=== PATIENT | male | born 1965 | race Caucasian/White ===

== ENCOUNTER 2020-09-13 10:48 | Emergency (ER) | payer MEDICAID, SELFPAY ==
[2020-09-13 10:56] VITALS: BP 149/100; PULSE 72; TEMP 36.1; O2SAT 97
--- NOTE | 2020-09-13 11:00 | DI.CT_ITS ---
EXAM: CT RENAL COLIC WO CLINICAL HISTORY: L flank pain. TECHNIQUE: Imaging Protocol: Axial computed tomography images with coronal and sagittal reformatted images were created and reviewed. COMPARISON: No exams were available for comparison FINDINGS: ABDOMEN: Lung Bases: Normal where visualized. Liver: Normal density. No measurable mass. Gallbladder and biliary tract: Cholelithiasis. No biliary ductal dilatation. Pancreas: Normal density, no abnormal calcifications or inflammatory process. Spleen: Normal. Kidneys: Normal size, contour and axis.There are 4 nonobstructing stones seen in the right kidney. T he largest measures 6.5 mm. No hydronephrosis is seen on the right. There is a 0.8 cm proximal left ureteral calculus causing moderate hydronephrosis. The calcification lies at the level of the super ior endplate of L4. There is a nonobstructing 2 mm calculus in the midpole of the left kidney. No m asses seen. Adrenal glands: No mass is seen. Lymph nodes: Within normal limits. Abdominal Aorta: Abdominal portion non-dilated. Atherosclerosis. PELVIS: Bladder:Incompletely distended but grossly unremarkable. Bowel: No obstruction or bowel wall thickening. No evidence of appendicitis. Peritoneal cavity: No ascites, collection or mesenteric inflammatory response. No free air. Reproductive organs: Within normal limits. Bones: Within normal limits. Soft Tissues: Degenerative changes. IMPRESSION: 1. 0.8 cm proximal left ureteral calculus causing moderate hydronephrosis. 2. Bilateral nephrolithiasis. 3. Findings were discussed with the emergency department on the date of the examination. RADIATION DOSE DELIVERED: 1,310.66mGy.cm Total DLP DATA REPOSITORY: All CT scans at this facility are submitted to the National Radiology Data Registry (NRDR) Dose Index Registry (DIR) with the [employer] (ACR). RADIATION OPTIMIZATION: All CT scans at this facility use at least one of these dose optimization te chniques: automated exposure control; mA and/or kV adjustment per patient size (includes targeted exa ms where dose is matched to clinical indication); or iterative reconstruction.
[2020-09-13 11:01] LABS: Bilirubin Negative (Negative); Blood Trace-intact (Negative); Clarity Clear (Clear); Glucose Negative (Negative); Ketones Negative (Negative); Leukocyte Esterase Negative (Negative); Nitrite Negative (Negative); Specific Gravity 1.025 (1.005-1.025); Urobilinogen 0.2 EU/dL (Up TO 0.2); pH 5.5 (5-8)
--- NOTE | 2020-09-13 11:10 | W.ED.GENAD ---
Discharge Plan Disposition Patient Disposition: HOME Condition: Improving Discharge Details Clinical Impression: Calculus of left ureter Primary Care Provider: Rob Cross ED Provider: Allan Martinez Home Meds and New Rx's Prescriptions: New ondansetron HCl [Zofran] 4 mg tablet 4 mg PO QID PRN (Reason: nausea and vomiting) Qty: 10 RF: 0 Continued bupropion HCl 75 mg tablet 75 mg PO DAILY RF: 0 aspirin 81 mg tablet,delayed release (DR/EC) 81 mg PO DAILY RF: 0 pantoprazole 40 mg tablet,delayed release (DR/EC) 40 mg PO DAILY RF: 0 clopidogrel 75 mg tablet 75 mg PO DAILY RF: 0 polyethylene glycol 3350 [Miralax] 17 gram/dose powder 17 g PO DAILY RF: 0 nitroglycerin 0.4 mg tablet, sublingual 0.4 mg sublingual ONCE RF: 0 Praluent Pen 75 mg/mL pen injector 75 mg subcut Q2W RF: 0 rosuvastatin 10 mg tablet 10 mg PO DAILY RF: 0 levocetirizine [Xyzal] 5 mg tablet 5 mg PO QPM PRNRF: 0 docusate sodium [Colace] 100 mg capsule 100 mg PO PRN RF: 0 Discharge Instructions Additional Instructions: Please follow-up in urology clinic this afternoon. Tylenol as needed for pain. Please use the provided Zofran as needed for nausea. Medical Decision Making 55-year-old male presents from outpatient general surgery clinic. He has had weeks of intermittent episodes of left flank pain. States he was seen at a hospital in [place] 3 weeks ago and diagnosed with a urinary tract infection for which she was treated with antibiotics. Notes stuttering urine stream. No change to urine color. Question chills at home but no documented fever. States that with the pain is intermittently had some nausea and vomiting. He does have known biliary colic for which she is seeing a surgical clinic. He arrives slightly hypertensive, afebrile, with no significant tenderness on exam. Concern for UTI, pyelonephritis, as well as renal colic. Patient IV access established, given small amount of fluids, acetaminophen, and referred for CT imaging. CT reveals a proximal left ureteral calculus. See formal report. White blood cell count is 9, hematocrit 48, platelets 300. Chemistries for creatinine 1.4. No comparison is available. Urinalysis with blood but no evidence of infection. Patient's pain improved with analgesia. Will place for labs. Discussed with urology who is able to see him in clinic this afternoon. Patient stable, impoved. HPI General Mode of arrival: ambulatory. Date/Time Provider Initiated Documentation: 09/13/20 10:54. Limitations to Documentation: no limitations. Information obtained by: patient. History of Present Illness 55 year old M presents to the emergency department with the chief complaint of Left flank pain intermittently for weeks, described as moderate, Quality is described as dull and constant, and is localized to the back and left. Patient reports no radiation. Patient started experiencing this week(s) and it has been intermittent. No relieving factors improve symptom(s), No exacerbating factors reported . Patient notes nausea/vomiting; denies fever/chills. Patient did receive the following treatments prior to arrival, none Related Data Home Medications Medication Instructions Recorded Confirmed alirocumab 75 mg/mL subcutaneous 75 mg SUBCUT Q2W 09/10/20 09/13/20 pen injector aspirin 81 mg tablet,delayed 81 mg PO DAILY 09/10/20 09/13/20 release bupropion HCl 75 mg tablet 75 mg PO DAILY tab 09/10/20 09/13/20 clopidogrel 75 mg tablet 75 mg PO DAILY 09/10/20 09/13/20 docusate sodium 100 mg capsule 100 mg PO PRN cap 09/10/20 09/13/20 levocetirizine 5 mg tablet 5 mg PO QPM PRN 09/10/20 09/13/20 nitroglycerin 0.4 mg sublingual 0.4 mg SUBLINGUAL ONCE 09/10/20 09/13/20 tablet pantoprazole 40 mg tablet,delayed 40 mg PO DAILY 09/10/20 09/13/20 release polyethylene glycol 3350 17 17 g PO DAILY 09/10/20 09/13/20 gram/dose oral powder rosuvastatin 10 mg tablet 10 mg PO DAILY 09/10/20 09/13/20 ondansetron HCl [Zofran] 4 mg PO QID PRN #10 tab 09/13/20 Previous Rx's Medication Instructions Recorded ondansetron HCl [Zofran] 4 mg PO QID PRN #10 tab 09/13/20 Allergies Allergy/AdvReac Type Severity Reaction Status Date / Time clarithromycin [From Biaxin] Allergy Unknown Verified 09/13/20 11:01 niacin Allergy Unknown Verified 09/13/20 11:01 simvastatin AdvReac Intermediate Joint pain Verified 09/13/20 11:01 General Stated Complaint: FlankPain JAQUELINE: 3 Review of Systems Narrative: 6 systems reviewed and otherwise negative. [facility] Medical History Alcoholism Appendicitis Blood glucose elevated CAD (coronary artery disease) Chronic depression Depression GERD (gastroesophageal reflux disease) Hyperlipemia, fat-induced Illiteracy Impaired fasting glucose Migraine Night sweats MICHAEL (obstructive sleep apnea) Plantar fasciitis Polyarthralgia Spinal stenosis Surgical History (Updated 09/13/20 @ 10:52 by Cora Rosario DO) History of appendectomy (~05/2016) S/P correction of deviated nasal septum (~05/2007) Stented coronary artery Social History Smoking/Tobacco Use Status: Never Smoking risk assessment performed?: Yes Alcohol Intake: current Alcohol Intake frequency: a few times a week Alcohol type: beer Drug use: Never Substance use type: does not use Do you feel safe at home: Yes Do you feel safe in your relationship?: Yes Exam Narrative Exam Narrative: GEN: awake, alert, oriented 3. Pleasant, well groomed, interactive. HEAD: Normocephalic, atraumatic ENT: Mucous membranes moist, oropharynx unremarkable, External ear exam unremarkable EYES: PERRL, EOMI NECK: Full ROM, no CARL, no menigismus CHEST/RESP: Nontender, clear to auscultation bilateral, no wheeze/rhonchi/rales CARDIOVASCULAR: RRR, no murmur, rub rick. 2+ Rad pulse bilateral ABDOMEN: Soft, minimal/discrete left lower quadrant tenderness without rebound, no mass. +Bowel sounds EXT: Full ROM, no edema, no rash Neuro: Grossly normal neurologic exam, conversant, interactive. Psych: Speech fluent, thoughts congruent, affect normal Course Vital Signs Vital signs: Vital Signs Temperature 36.1 C L 09/13/20 10:56 Pulse 72 09/13/20 10:56 Blood Pressure 149/100 H 09/13/20 10:56 Pulse Oximetry 97 09/13/20 10:56 Temperature 36.1 C L 09/13/20 10:56 Temperature Source Temporal Artery Scan 09/13/20 10:56 Pulse 72 09/13/20 10:56 Respiratory Effort Non-Labored 09/13/20 11:00 Blood Pressure 149/100 H 09/13/20 10:56 Blood Pressure Position Sitting 09/13/20 10:56 Pulse Oximetry 97 09/13/20 10:56 Oxygen Delivery Method Room Air 09/13/20 10:56 Oxygen Flow Rate 0 09/13/20 10:56 Pain Level 3 09/13/20 10:56
[2020-09-13 11:12] LABS: Bacteria Rare HPF (Negative); C & S Indicated? No; Casts Negative LPF (Negative); Crystals Negative HPF (Negative); Epithelial Cells Rare HPF (Negative); Mucus Trace (Negative); RBC 0-2 HPF (0-2)
[2020-09-13 11:24] LABS: Abs Immature Grans 0.02 10^3/uL (0.0-0.06); Absolute Basophil Count 0.05 10^3/uL (0.0-0.2); Absolute Eosinophil Count 0.19 10^3/uL (0.0-0.7); Absolute Lymphocyte Count 2.19 10^3/uL (1.2-3.4); Absolute Monocyte Count 0.87 10^3/uL (0.1-0.8); Absolute Neutrophil Count 5.84 10^3/uL (1.2-6.7); Basophils % 0.5; Eosinophils % 2.1; HCT 48.6 % (40.0-50.0); HGB 16.3 g/dL (13.5-17.5); Immature Grans % 0.2; Lymphocytes % 23.9; MCH 32.5 pg (27.0-33.0); MCHC 33.5 % (32.0-36.0); Monocytes % 9.5; Neutrophils % 63.8; Nucleated RBC 0 %; Platelet Count 300 10^3/uL (130-400); RBC 5.01 10^6/uL (4.36-5.78); RDW-SD 43.1 fL; WBC 9.16 10^3/uL (4.4-10.8)
[2020-09-13 11:33] LABS: ALT 38 U/L (16-63); AST 26 U/L (15-37); Albumin 3.9 g/dL (3.4-5.0); Alkaline Phosphatase 109 U/L (46-116); Anion Gap 10.1 mmol/L (3-11); BUN 14 mg/dL (7-18); Bilirubin, Total 0.8 mg/dL (0.2-1.0); CO2 24.9 mmol/L (21.0-32.0); CREATININE 1.4 mg/dL (0.70-1.30); Calcium 9.1 mg/dL (8.5-10.1); Chloride 101 mmol/L (98-107); Estimated GFR 52.81 (mL/min/1.73m2); Glucose 107 mg/dL (74-106); Potassium 4.3 mmol/L (3.5-5.1); Sodium 136 mmol/L (136-145); Total Protein 8.3 g/dL (6.4-8.2)
[2020-09-13] MEDS: ACETAMINOPHEN 1,000 MG/100 ML BTL 400 MG IVPB (11:35)
[2020-09-13] MEDS: Normal Saline 1,000 ML 150 ML IV (11:36)
[2020-09-13] MEDS: Tamsulosin 0.4 MG CAPCR PO (11:45)
[2020-09-13 11:52] LABS: Hemoglobin A1C 5.9 % (<5.7)
[2020-09-13 11:54] LABS: GGT 34 U/L (15-85); TSH 1.17 uIU/mL (0.36-3.74)
[2020-09-13] MEDS: Ondansetron 4 MG/2 ML VIAL IVP (12:07)
[2020-09-13 12:32] VITALS: BP 143/93; PULSE 66; RESP 18; O2SAT 98
[2020-09-13 13:24] VITALS: BP 140/90; PULSE 56; RESP 20; TEMP 36.3; O2SAT 98
[2020-09-13] MEDS: Ondansetron O.D.T. 4 MG TABEF, 3 TABS/BTL PO (13:42)
== END 2020-09-13 13:37 | disposition home or self-care (01) ==
PROVIDERS: Surgery; Emergency Provider Emergency Medicine; PCP Family Medicine
DX: N13.2 Hydronephrosis with renal and ureteral calculous obstruction (principal)
CPT/HCPCS: 36415; 80053; 96361; 96374; 96375; 99284; 74176; 81003; 81015; 82977; 83036; 84443; 85025; 87086; J0131; J2405

== ENCOUNTER 2020-09-21 01:45 | Outpatient (CLI) | payer MEDICAID, SELFPAY ==
[2020-09-21 12:31] LABS: Calculated LDL 96 mg/dL (<100); Cholesterol 162 mg/dL (<200); HDL Cholesterol 41 mg/dL (40-60); Triglyceride 127 mg/dL (<150)
== END 2020-09-21 01:46 | disposition home or self-care (01) ==
LOC: LBO 01:51
PROVIDERS: PCP Family Medicine; Visit Provider Internal Medicine Cardiovascular Disease
DX: E78.5 Hyperlipidemia, unspecified (principal); I25.10 Atherosclerotic heart disease of native coronary artery without angina pectoris
CPT/HCPCS: 36415; 80061

== ENCOUNTER 2020-09-28 10:35 | Emergency (ER) | payer MEDICAID, SELFPAY ==
[2020-09-28 10:40] VITALS: BP 163/90; PULSE 81; RESP 12; TEMP 36.7; O2SAT 95
--- NOTE | 2020-09-28 10:43 | ED.GENADUL_ITS ---
Discharge Plan Disposition Patient Disposition: HOME Condition: Stable Discharge Details Clinical Impression: Constipation Primary Care Provider: Rob Cross ED Provider: Betty Leigh Home Meds and New Rx's Prescriptions: Continued bupropion HCl 75 mg tablet 75 mg PO BID RF: 0 aspirin 81 mg tablet,delayed release (DR/EC) 81 mg PO DAILY RF: 0 pantoprazole 40 mg tablet,delayed release (DR/EC) 40 mg PO DAILY RF: 0 clopidogrel 75 mg tablet 75 mg PO DAILY RF: 0 nitroglycerin 0.4 mg tablet, sublingual 0.4 mg sublingual ONCE RF: 0 Praluent Pen 75 mg/mL pen injector 75 mg subcut Q2W RF: 0 rosuvastatin 10 mg tablet 10 mg PO DAILY RF: 0 docusate sodium [Colace] 100 mg capsule 100 mg PO PRN RF: 0 ondansetron HCl [Zofran] 4 mg tablet 4 mg PO QID PRN (Reason: nausea and vomiting) Qty: 10 RF: 0 hydrocodone-acetaminophen 5-325 mg Tablet 1 tab PO QID PRN (Reason: Pain) RF: 0 tamsulosin 0.4 mg Capsule 0.4 mg PO HS RF: 0 Discharge Instructions Instructions: Constipation (ED) Additional Instructions: Please encourage water intake. You may continue with stool softeners but wait until tomorrow to take any further. You are given a dose of magnesium citrate while here. Please follow-up with your primary care next week for reevaluation. If you develop fever/chills, increased pain, vomiting or other new/worsening symptoms please seek care urgently once again. Referrals: Rob Cross [Primary Care Provider] - Discharge Data Discharge Date/Time-TO BE ENTERED AT DEPARTURE: 09/28/20 16:05 Medical Decision Making Patient is a pleasant 55-year-old gentleman presents today with chief complaint of constipation and abdominal discomfort. He states that he has had difficulty with regular bowel movements for several years. However, over the past 2 months this is gotten significantly worse. He reports that he has not had a bowel movement on the past 7 days. He has never passed flatus. States that his appetite has been normal. Despite a normal intake, reports that he has had a 20 pound weight loss over the past few months. He denies any fevers or chills. States that he had his last colonoscopy over 3 years ago. She does have a significant family history including a brother who in his 50s of colon cancer. He reports that when he was having bowel movements, last week, they are very small and black. He reported that they were quite hard. He states he has been using stool softeners at home with no improvement of his symptoms. Patient was seen at urgent care today who felt that the patient would require imaging, particularly given his family history, and recommended that she come in for evaluation in the emergency department. Patient denies any nausea vomiting. No change in urinary habits. Clinical history includes ureteral calculus, has a planned upcoming procedure for calculus on the left side. He denies any dysuria or change in his urination. Patient also has history of chronic GERD, high cholesterol, constipation, TIA, cardiac stent. Patient is on Plavix and aspirin. He denies any chest pain or shortness of breath. On exam, patient appears nontoxic. His lungs are clear, normal cardiac exam. Abdominal exam is fairly benign. He does have some firm areas palpated which is most likely consistent with his constipation. No focal tenderness over these areas. Abdomen is distended but not tympanic. No CVA tenderness at this time. Rectal exam is without significant abnormality. Patient does report a history of hemorrhoids but none are noted on exam today. No impacted stool is able to be palpated. Unable to obtain any stool for Hemoccult testing. I am concerned, the patient, for potential colon cancer and mass-effect related to his constipation particular given his family history. Plan for CT imaging. We will also obtain baseline labs. Discussed this plan with the patient is in agreement. Also considered obstruction with patient complication passing flatus well and abdomen is nontender at this time. Also consider constipation. Patient is not on any opiates but was treated recently for kidney stone. This may be associated with worsening his chronic constipation. Not see any evidence to suggest an acute surgical abdomen time. Labs reviewed. No leukocytosis. Stable H&H. CMP without abnormality. FINDINGS: ABDOMEN: Lung Bases: Normal where visualized. Liver: Moderate fatty infiltration.. No measurable mass. Gallbladder and biliary tract: Cholelithiasis. No biliary dilation. Pancreas: Normal density, no abnormal calcifications or inflammatory process. Spleen: Normal. Kidneys: Normal size, contour and axis. Multiple small nonobstructing stones in the right kidney. No change in moderate left hydronephrosis. The previously noted 8 millimeter calcification remains present in the left proximal ureter. There is a delayed left nephrogram. There is no abnormal perinephric collection. Incidental small cyst at the lower pole of the left kidney. Adrenal glands: No masses seen. Abdominal Aorta: Abdominal portion non-dilated. Atherosclerotic changes. PELVIS: Bladder: Symmetric distention, no gross wall thickening. Bowel: No obstruction or bowel wall thickening. Peritoneal cavity: No ascites, collection or mesenteric inflammatory response. Bones: Degenerative disc changes and facet degenerative changes, greatest at L5- S1. Reproductive organs: Prostate mildly enlarged peer Lymph nodes: Unremarkable. Impression: No change in moderate left hydronephrosis secondary to an 8 millimeters stone in the upper 3rd of the left ureter. Discussed the findings with the patient. He is relieved that there is no evidence of mass-effect or obstruction. Patient I discussed treatment of his constipation. We will give him an enema while here. Patient did have approximately 400 cc of stool out after the enema. He seems upset that this was not more. Stool was noted, small hard ball and patient feels like he still has significantly more stool that needs to pass. Patient was given magnesium citrate. Patient continues to have small amounts of stool. We did discuss with magnesium citrate could take a few hours to have full effect. We discussed having him continue to wait in the department versus discharged home. He would prefer discharge home at this time. Return precautions were discussed. Encourage close follow-up with primary care. We discussed that he needs to write further laxatives if needed tomorrow. All his questions and concerns were addressed and he is in agreement with this plan. [facility] General Mode of arrival: ambulatory . Date/Time Provider Initiated Documentation: 09/28/20 10:35 . Limitations to Documentation: no limitations . Information obtained by: patient and RN notes reviewed . History of Present Illness 55 year old M presents to the emergency department with the chief complaint of distended abdomen, no BM , described as moderate, with intensity rated at 4. Quality is described as aching, and is localized to the abdomen. Patient reports no radiation. Patient started experiencing this month(s) and it has been intermittent (intermittent over months, constant for the past 7 days). No relieving factors improve symptom(s), Eating worsens symptoms . Patient notes diaphoresis (at night) and nausea/vomiting (feels nauseated after eating, appetite normal); denies chest pain, fever/chills, loss of appetite and shortness of breath. Patient did receive the following treatments prior to arrival, other (stool softeners and laxatives ) Related Data Home Medications Medication Instructions Recorded Confirmed alirocumab 75 mg/mL subcutaneous 75 mg SUBCUT Q2W 09/10/20 09/28/20 pen injector aspirin 81 mg tablet,delayed 81 mg PO DAILY 09/10/20 09/28/20 release bupropion HCl 75 mg tablet 75 mg PO BID tab 09/10/20 09/28/20 clopidogrel 75 mg tablet 75 mg PO DAILY 09/10/20 09/28/20 docusate sodium 100 mg capsule 100 mg PO PRN cap 09/10/20 09/28/20 nitroglycerin 0.4 mg sublingual 0.4 mg SUBLINGUAL ONCE 09/10/20 09/28/20 tablet pantoprazole 40 mg tablet,delayed 40 mg PO DAILY 09/10/20 09/28/20 release rosuvastatin 10 mg tablet 10 mg PO DAILY 09/10/20 09/28/20 ondansetron HCl 4 mg tablet 4 mg PO QID PRN #10 tab 09/18/20 09/28/20 hydrocodone-acetaminophen 1 tab PO QID PRN 09/28/20 09/28/20 tamsulosin 0.4 mg PO HS 09/28/20 09/28/20 Previous Rx's Medication Instructions Recorded ondansetron HCl 4 mg tablet 4 mg PO QID PRN #10 tab 09/18/20 Allergies Allergy/AdvReac Type Severity Reaction Status Date / Time clarithromycin [From Biaxin] Allergy Unknown Verified 09/28/20 10:55 niacin Allergy Unknown Verified 09/28/20 10:55 simvastatin AdvReac Intermediate Joint pain Verified 09/28/20 10:55 General Stated Complaint: Abd Prob JAQUELINE: 3 Review of Systems Constitutional Constitutional: Reports as per HPI, Denies chills, Denies fatigue, Denies fever(s) and Denies headache(s) ENT Ears, Nose, Mouth, and Throat: Denies headache(s) Cardiovascular Cardiovascular: Reports as per HPI, Denies chest pain and Denies dyspnea Respiratory Respiratory: Reports as per HPI, Denies cough and Denies dyspnea Gastrointestinal Gastrointestinal: Reports as per HPI Genitourinary Genitourinary: Denies system reviewed and no additional complaints, except as documented (patient denies any change in urinary habits) Musculoskeletal Musculoskeletal: Reports as per HPI and Denies back pain Integumentary/Breasts Skin/Breast: Reports as per HPI and Denies rash Neurologic Neurologic: Reports as per HPI and Denies headache(s) Endocrine Endocrine: Denies fatigue [facility] Medical History Alcoholism Appendicitis Blood glucose elevated CAD (coronary artery disease) Chronic depression Depression GERD (gastroesophageal reflux disease) Hyperlipemia, fat-induced Illiteracy Impaired fasting glucose Migraine Monoclonal gammopathy of unknown significance (MGUS) Night sweats MICHAEL (obstructive sleep apnea) Plantar fasciitis Polyarthralgia Spinal stenosis Surgical History History of appendectomy (~05/2016) S/P correction of deviated nasal septum (~05/2007) Stented coronary artery Social History Smoking/Tobacco Use Status: Never Smoking risk assessment performed?: Yes Alcohol Intake: current Alcohol Intake frequency: a few times a week Alcohol type: beer Drug use: Never Substance use type: does not use Do you feel safe at home: Yes Do you feel safe in your relationship?: Yes Exam Const General: cooperative, healthy appearing, comfortable, no acute distress and well developed Nutritional Appearance: well nourished and overweight Orientation: alert and awake HENDC Head: normal to inspection Mouth: moist mucous membranes Resp Effort & Inspection: normal respiratory effort, able to speak in complete sentences and no respiratory distress Auscultation: clear to auscultation bilaterally, no rales, no rhonchi and no wheezes Cardio Rate: regular rate Rhythm: regular rhythm Heart Sounds: S1 normal and S2 normal GI Inspection: normal to inspection, no abdominal wall ecchymosis, distended and no visible herniation Palpation: soft, no hepatosplenomegaly, not firm, no guarding, no hernias, mass (firm area over the right side of the abdomen), no splenomegaly, nontender and No ascites Percussion: normal to percussion Auscultation: hypoactive bowel sounds Rectal Exam: visual inspection normal, normal sphincter tone, prostate normal, No fecal impaction and other (no stool sample could be obtained for heme testing) Back/Spine/Pelvis Back: no CVA tenderness Skin General skin exam: no rashes or lesions noted Trauma: no lacerations or abrasions Neuro General: patient alert and patient awake Cognition: normal cognition Speech: speech normal Gait: normal gait Psych Appearance: grossly normal and well kempt Mental Status: mental status grossly normal Speech and Movement: speech and movement normal Course Vital Signs Vital signs: Vital Signs Temperature 36.7 C 09/28/20 10:40 Pulse 81 09/28/20 10:40 Respiratory Rate 12 09/28/20 10:40 Blood Pressure 163/90 H 09/28/20 10:40 Pulse Oximetry 95 09/28/20 10:40 Temperature 36.7 C 09/28/20 10:40 Temperature Source Skin 09/28/20 10:40 Pulse 81 09/28/20 10:40 Respiratory Rate 12 09/28/20 10:40 Blood Pressure 163/90 H 09/28/20 10:40 Blood Pressure Position Sitting 09/28/20 10:40 Pulse Oximetry 95 09/28/20 10:40 Oxygen Delivery Method Room Air 09/28/20 10:40 Oxygen Flow Rate 0 09/28/20 10:40 Pain Level 4 09/28/20 10:40
--- NOTE | 2020-09-28 11:00 | DI.CT_ITS ---
EXAM: CT ABDOMEN PELVIS W CLINICAL HISTORY: ?blockage. No BM x 7 days. Fam hx of colon cancer. TECHNIQUE: Imaging Protocol: Axial computed tomography images with coronal and sagittal reformatted images were created and reviewed CONTRAST MATERIAL: Intravenous: Omnipaque 350 Contrast volume:100 cc Oral: / no COMPARISON: CT CT RENAL COLIC WO from 09/13/2020 FINDINGS: ABDOMEN: Lung Bases: Normal where visualized. Liver: Moderate fatty infiltration.. No measurable mass. Gallbladder and biliary tract: Cholelithiasis. No biliary dilation. Pancreas: Normal density, no abnormal calcifications or inflammatory process. Spleen: Normal. Kidneys: Normal size, contour and axis. Multiple small nonobstructing stones in the right kidney. No change in moderate left hydronephrosis. The previously noted 8 millimeter calcification remains pres ent in the left proximal ureter. There is a delayed left nephrogram. There is no abnormal perinephric collection. Incidental small cyst at the lower pole of the left kidney. Adrenal glands: No masses seen. Abdominal Aorta: Abdominal portion non-dilated. Atherosclerotic changes. PELVIS: Bladder: Symmetric distention, no gross wall thickening. Bowel: No obstruction or bowel wall thickening. Peritoneal cavity: No ascites, collection or mesenteric inflammatory response. Bones: Degenerative disc changes and facet degenerative changes, greatest at L5-S1. Reproductive organs: Prostate mildly enlarged peer Lymph nodes: Unremarkable. Impression: No change in moderate left hydronephrosis secondary to an 8 millimeters stone in the upper 3rd of the left ureter. RADIATION DOSE DELIVERED: 1,480.1mGy.cm Total DLP DATA REPOSITORY: All CT scans at this facility are submitted to the National Radiology Data Registry (NRDR) Dose Index Registry (DIR) with the [employer] ([employer]). RADIATION OPTIMIZATION: All CT scans at this facility use at least one of these dose optimization te chniques: automated exposure control; mA and/or kV adjustment per patient size (includes targeted exa ms where dose is matched to clinical indication); or iterative reconstruction.
[2020-09-28] MEDS: Lactated Ringers 1,000 ML 1000 ML IV (11:05)
[2020-09-28] MEDS: Normal Saline Flush 10 ML SYR IVP (11:10)
[2020-09-28 11:19] LABS: Abs Immature Grans 0.03 10^3/uL (0.0-0.06); Absolute Basophil Count 0.03 10^3/uL (0.0-0.2); Absolute Eosinophil Count 0.19 10^3/uL (0.0-0.7); Absolute Lymphocyte Count 2.15 10^3/uL (1.2-3.4); Absolute Monocyte Count 0.69 10^3/uL (0.1-0.8); Absolute Neutrophil Count 5.71 10^3/uL (1.2-6.7); Basophils % 0.3; Eosinophils % 2.2; HCT 48.1 % (40.0-50.0); HGB 15.8 g/dL (13.5-17.5); Immature Grans % 0.3; Lymphocytes % 24.4; MCH 32.2 pg (27.0-33.0); MCHC 32.8 % (32.0-36.0); Monocytes % 7.8; Nucleated RBC 0 %; Platelet Count 280 10^3/uL (130-400); RBC 4.91 10^6/uL (4.36-5.78); RDW-SD 43.6 fL
[2020-09-28 11:29] LABS: ALT 36 U/L (16-63); AST 23 U/L (15-37); Albumin 3.8 g/dL (3.4-5.0); Alkaline Phosphatase 98 U/L (46-116); Anion Gap 9.8 mmol/L (3-11); BUN 13 mg/dL (7-18); Bilirubin, Total 0.5 mg/dL (0.2-1.0); CO2 26.2 mmol/L (21.0-32.0); CREATININE 1.2 mg/dL (0.70-1.30); Chloride 104 mmol/L (98-107); Glucose 105 mg/dL (74-106); Potassium 4.4 mmol/L (3.5-5.1); Sodium 140 mmol/L (136-145); Total Protein 8.2 g/dL (6.4-8.2)
[2020-09-28 12:37] VITALS: BP 143/93; PULSE 63; TEMP 36.7; O2SAT 94
[2020-09-28] MEDS: Omnipaque 350 MG/ML 100 ML BTL IV (12:52)
[2020-09-28] MEDS: Normal Saline - Diluent 50 ML VIAL IV (12:53)
[2020-09-28 15:51] VITALS: BP 131/83; PULSE 77; RESP 16; TEMP 36.8; O2SAT 97
[2020-09-28 15:52] VITALS: BP 131/83; PULSE 77; RESP 16; TEMP 36.8; O2SAT 97
== END 2020-09-28 16:05 | disposition home or self-care (01) ==
PROVIDERS: Emergency Provider Physician Assistant; PCP Family Medicine
DX: K59.00 Constipation, unspecified (principal)
CPT/HCPCS: 80053; 96360; 99285; 74177; 83735; 85025; 99284; J3490

== ENCOUNTER 2020-10-02 01:25 | Outpatient (CLI) | payer MEDICAID, SELFPAY ==
--- NOTE | 2020-10-02 07:00 | DI.US_ITS ---
EXAM: US ABDOMEN CLINICAL HISTORY: ruq pain/poss gallstones/cirrhosis/fatty liver,K80.20 TECHNIQUE: Ultrasound abdomen performed using standard protocol. COMPARISON: CT CT ABDOMEN PELVIS W from 09/28/2020 FINDINGS: LIVER: Moderate to severe fatty infiltration. Liver measures 17 cm in length. No focal liver lesion s are seen.. GALLBLADDER: No stones or are seen within the body of the gallbladder. Stones are faintly visible in the neck of the gallbladder as was seen on CT.. No evidence of wall thickening. No pericholecystic fluid identified. SCHOFIELD'S SIGN: Negative. BILIARY SYSTEM: No intrahepatic or extrahepatic biliary ductal dilation. KIDNEYS: Kidneys are symmetric in size. Small nonobstructing stones right kidney.. Moderate left hyd ronephrosis, unchanged.. incidental small left renal cyst identified. PANCREAS: Normal where visualized. SPLEEN: Not enlarged. ABDOMINAL AORTA AND IVC: Visualized portions normal caliber. ASCITES: None seen. IMPRESSION: Stones are noted within the neck of the gallbladder which do not appear to be causing cholecystitis. There is stable moderate left hydronephrosis. A stone was noted in the upper 3rd of the left ureter on the previous CT. DATA REPOSITORY:
== END 2020-10-02 01:26 ==
LOC: DI 01:25
PROVIDERS: PCP Family Medicine; Visit Provider Surgery
DX: R10.11 Right upper quadrant pain (principal); K80.20 Calculus of gallbladder without cholecystitis without obstruction; K76.0 Fatty (change of) liver, not elsewhere classified; N20.0 Calculus of kidney; N13.30 Unspecified hydronephrosis
CPT/HCPCS: 76700